=== PATIENT | female | born 1935 | race Caucasian/White ===

== ENCOUNTER → 2017-07-28 | Outpatient (CLI) | payer MEDICARE, BC ==
--- NOTE | 2017-08-09 10:10 | RSPPFT ---
DATE OF PROCEDURE: 07/28/17 COMMENTS: Spirometry is within normal limits. Lung volumes are normal. Diffusion capacity is mildly reduced. Flow volume loops appear unremarkable. IMPRESSION: 1. Essentially normal pulmonary function study. 2. Mild reduction in diffusion capacity.
== END ==
LOC: PHRSP 08:35
PROVIDERS: ATTEND Allergy & Immunology
DX: R06.02 Shortness of breath (principal); J44.1 Chronic obstructive pulmonary disease with (acute) exacerbation
CPT/HCPCS: 94010; 94726; 94729